=== PATIENT | male | born 1955 | race Caucasian/White ===

== ENCOUNTER 2020-09-22 11:58 | Inpatient (IN) | payer OTHER ==
[~2020-09-22] VITALS: Ht 165.1 cm; Wt 78.2 kg
[2020-09-22 13:22] LABS: HEMOGLOBIN 16.7 gm/dl (14.0-17.5); RED BLOOD COUNT 4.99 M/UL (4.20-5.50)
[2020-09-22 13:51] LABS: BUN/CREATININE RATIO 20 (0-10)
[2020-09-22] MEDS ORDERED: ZYRTEC10 MG PO (15:49)
[2020-09-22] MEDS ORDERED: LIPITOR40 MG PO (15:49)
[2020-09-22] MEDS ORDERED: LOPRESSOR 25 MG25 MG PO (15:50)
[2020-09-22] MEDS ORDERED: PROTONIX40 MG PO (15:50)
[2020-09-22] MEDS ORDERED: PLAVIX 75 MG TA75 MG PO (15:50)
[2020-09-22] MEDS ORDERED: ZESTRIL10 MG PO (15:50)
[2020-09-22] MEDS ORDERED: DESYREL 50 MG T50 MG PO (15:51)
[2020-09-23 02:21] LABS: HEMOGLOBIN 15.7 gm/dl (14.0-17.5); RED BLOOD COUNT 4.74 M/UL (4.20-5.50); WHITE BLOOD COUNT 8.2 K/UL (4.5-11.0)
[2020-09-23 02:49] LABS: BUN/CREATININE RATIO 20 (0-10)
[2020-09-24 03:22] LABS: HEMOGLOBIN 15.7 gm/dl (14.0-17.5); RED BLOOD COUNT 4.8 M/UL (4.20-5.50)
[2020-09-24 03:37] LABS: BUN/CREATININE RATIO 20 (0-10)
[2020-09-24] MEDS ORDERED: ELIQUIS 5 MG TAB5 MG PO (16:01)
== END 2020-09-24 18:15 | disposition home or self-care (01) | DRG 274 ==
LOC: ER1 11:58 → CDU 15:25 → PROG CARE 15:25 → M/S 17:52 → PROG CARE 09-23 15:08
PROVIDERS: Physician Assistant; Physician Assistant Medical; ADMIT Internal Medicine
PROC: B24BZZ4 Ultrasonography of Heart with Aorta, Transesophageal (ICD-10-PCS; principal; 2020-09-22)
PROC: 02583ZZ Destruction of Conduction Mechanism, Percutaneous Approach (ICD-10-PCS; 2020-09-23)
PROC: 4A023FZ Measurement of Cardiac Rhythm, Percutaneous Approach (ICD-10-PCS; 2020-09-23)
PROC: 4A0234Z Measurement of Cardiac Electrical Activity, Percutaneous Approach (ICD-10-PCS; 2020-09-23)
PROC: 02K83ZZ Map Conduction Mechanism, Percutaneous Approach (ICD-10-PCS; 2020-09-23)
DX: I48.92 Unspecified atrial flutter (principal); R07.9 Chest pain, unspecified; I25.10 Atherosclerotic heart disease of native coronary artery without angina pectoris; Z95.1 Presence of aortocoronary bypass graft; I73.9 Peripheral vascular disease, unspecified; Z95.820 Peripheral vascular angioplasty status with implants and grafts; I10 Essential (primary) hypertension; E78.5 Hyperlipidemia, unspecified; Z85.21 Personal history of malignant neoplasm of larynx; Z87.891 Personal history of nicotine dependence; Z82.49 Family history of ischemic heart disease and other diseases of the circulatory system; Z79.899 Other long term (current) drug therapy; J44.9 Chronic obstructive pulmonary disease, unspecified; Z20.822 Contact with and (suspected) exposure to COVID-19; J60 Coalworker's pneumoconiosis; K21.9 Gastro-esophageal reflux disease without esophagitis
CPT/HCPCS: ECHO; 36415; 71045; 80048; 80053; 82550; 82553; 83735; 83874; 84439; 84443; 84484; 85025; 85027; 90471; 93005; 93306; 93312; 93320; 93609; 93621; 94664; 96374; 99152; 99153; 99285; C1730; C1733; C1766; J0696; J1644; J2250; J2270; J3010; J7040; U0002